=== PATIENT | male | born 1940 | race Caucasian/White ===

== ENCOUNTER → 2016-11-07 | Outpatient (CLI) | payer OTHER ==
[~2016-11-07] MED LIST: ASPI81TA28 PO; ATOR-24 PO; CHOL1000 PO; MULT-506 PO; OMEG10007 PO; OPTIRAY 320 IV PRN; PRLSR20 PO; TYLOTC500 PO; VNTHFA/IN INH
--- NOTE | 2016-11-07 12:57 | DIAGNOSTIC IMAGING REPORT ---
CHEST CTA for PULMONARY ARTERIES CT DOSE: 544.24 mGycm HISTORY: Chest pain. Dyspnea. R/O PE, CHEST PAIN TECHNIQUE: Multiaxial CT images of the chest were performed following the intravenous administration of contrast to evaluate the pulmonary arteries. Maximal intensity projection images were also obtained. COMPARISON STUDY: None. FINDINGS: There is a normal caliber thoracic aorta with no evidence for dissection. There is no evidence for pulmonary embolus. No pleural effusions. No pneumothorax. The liver and spleen are unremarkable. No mediastinal or hilar lymphadenopathy. The central airways are patent. The lungs are clear. Mild interstitial and peribronchial prominence in the mid to lower lung regions bilaterally. IMPRESSION: No evidence for pulmonary embolus. Mild peribronchial and interstitial prominence in the basilar lung regions bilaterally Electronically signed by: David Burleson M.D. 11/07/2016 12:56 PM Dictated Date/Time: 11/07/2016 12:51 PM
== END | disposition home or self-care (01) ==
LOC: C.CTS 12:14
PROVIDERS: ATTEND Physician Assistant
DX: R07.9 Chest pain, unspecified (principal)

== ENCOUNTER → 2016-11-17 | Day surgery (SDC) | payer OTHER ==
[2016-11-17] VITALS (14 sets, daily range): BP systolic 107–156; BP diastolic 55–103; PULSE 53–108; TEMP 36.4–36.9; O2SAT 95–100; Ht 182.9 cm; Wt 106.0 kg
[~2016-11-17] VITALS: Ht 182.9 cm; Wt 106.0 kg
[~2016-11-17] MED LIST changes: +FENTANYL CITRATE 100 MCG 2 ML CARP IV ONE; +MIDAZOLAM HCL 5 MG/ML 2ML VIAL IV ONE; -OPTIRAY 320 IV PRN
--- NOTE | 2016-11-17 08:57 | History & Physical Bridge Note ---
H&P Re-Evaluation Bridge Note: I have examined the patient, reviewed the History & Physical and in the interval since the performance of the History & Physical I have noted the following changes of clinical significance: No changes noted
--- NOTE | 2016-11-17 08:57 | History and Physical ---
History & Physical Date Nov 17, 2016. Chief Complaint The patient is a 75 year old male with complaints of chronic cough and progressive fatigue: History of Present Illness The patient is a 75 year old male with complaints of chronic cough and progressive fatigue: The patient is a 75y/o male with continued SOB and active mucus production. He had a bronchoscopy 05/01/14 with no significant findings even a negative AFB analysis. He is here for repeat bronchoscopy for his chronic bronchiectasis. Recent EKG (11/06/16) in the clinic noted PVC but no signs of acute ischemia along with a negative Troponin I (11/06/16). 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) Allergies Coded Allergies: Amoxicillin (Verified Allergy, Intermediate, RASH, 11/17/16) Ibuprofen (Verified Allergy, Intermediate, HIVES, 11/17/16) Naproxen (Verified Allergy, Intermediate, HIVES, 11/17/16) Penicillins (Verified Allergy, Intermediate, RASH, 11/17/16) Aspirin (Verified Adverse Reaction, Intermediate, ULCER, 11/17/16) Home Medications Scheduled Albuterol Hfa (Ventolin Hfa), 2 PUFFS INH DAILY Aspirin (Aspirin Ec), 81 MG PO DAILY Atorvastatin (Lipitor), 1 TAB PO DAILY Cholecalciferol (Vitamin D3), 1 TAB PO DAILY Fish Oil (Yachats-3), 4 CAPSULES PO DAILY Multivitamin (Multivitamin), 1 TAB PO DAILY Omeprazole (Prilosec), 20 MG PO DAILY Physical Examination Skin: warm/dry, no rash Eyes: normal inspection, EOMI, sclerae normal ENT: normal ENT inspection, pharynx normal Head: normocephalic, atraumatic Neck: supple, no adenopathy, trachea midline Respiratory/Chest: lungs clear, normal breath sounds, no respiratory distress Cardiovascular: regular rate, rhythm, no edema, no murmur Abdomen / GI: normal bowel sounds, non tender Back: normal inspection Extremities: normal inspection, normal range of motion Neurologic/Psych: no motor/sensory deficits, alert, normal reflexes, oriented x 3 Diagnosis Chronic Cough ASA Classification: ASA Class III Plan of Treatment Bronchoscopy with BAL
--- NOTE | 2016-11-17 08:58 | Procedure Note ---
Pre-Mod Sedation Assessment General Date of Moderate Sedation: Nov 17, 2016. Vital Signs: Vital Signs Past 12 Hours Date Time Temp Pulse Resp B/P (MAP) Pulse Ox O2 Delivery O2 Flow Rate FiO2 11/17/16 08:35 36.5 70 18 156/71 (99) 95 Room Air Review Cardiovascular: regular rate, rhythm, no edema, no gallop, no JVD, no murmur, normal peripheral pulses Abdomen: normal bowel sounds, non tender, soft, no organomegaly, no pulsatile mass Lungs: chest non-tender, lungs clear, normal breath sounds, no respiratory distress, no accessory muscle use Pre-Sedation Airway Assessment Smoking Status: Current Some Day Smoker Mallampati Classification: Class III ASA Classification: Class III Procedure Planning Contraindications-for Mod Sed: None Yes Notes The planned sedation has been discussed with the patient and consent obtained. I have identified the patient, determined the appropriateness of sedation and have assessed the patient immediately prior to the procedure. All medicine(s) and interventions are by my order.
--- NOTE | 2016-11-17 10:30 | Procedure Note ---
Post-Moderate Sedation Plan General Date of Moderate Sedation Nov 17, 2016. Vital Signs: Vital Signs Past 12 Hours Date Time Temp Pulse Resp B/P (MAP) Pulse Ox O2 Delivery O2 Flow Rate FiO2 11/17/16 10:00 93 16 107/58 95 Nasal Cannula 3.0 11/17/16 09:55 80 14 112/67 98 Mask 8.0 11/17/16 09:50 108 16 139/77 99 Mask 8.0 11/17/16 09:45 106 18 137/82 100 Mask 8.0 11/17/16 09:40 98 18 133/79 100 Mask 8.0 11/17/16 09:30 93 21 151/103 100 Mask 8.0 11/17/16 09:16 36.5 18 156/71 95 Room Air 11/17/16 08:35 36.5 70 18 156/71 (99) 95 Room Air Review - Discharge Plan Post Moderate Sedation Plan: On clinical assessment, the patient appears to have tolerated the conscious sedation without complications. Patient is recovering as anticipated. Patient will continue to be monitored by nursing and may be discharged when conscious sedation discharge criteria are met.
--- NOTE | 2016-11-17 10:32 | Bronchoscopy Procedure Note ---
Bronchoscopy Procedure Note Procedure: Bronchoscopy, conscious sedation, BAL (Lingula) Consent: Obtained through the patient placed into the chart Pre-procedural diagnosis: chronic Cough Post-procedural diagnosis: chronic cough Start time: 942 End time: 955 Total time: 13 minutes Analgesia: 2% liquid lidocaine: Via nebulizer 4% gel lidocaine: Via right naris 2% liquid lidocaine: Via bronchoscopy Sedation: Versed IV: 3 mg Fentanyl IV: 75 g Procedure: The Olympus video bronchoscope was used for this procedure and passed down through the right naris Right naris/posterior naris/posterior oropharynx: Anatomically within normal limits Glottis: Anatomically within normal limits Vocal cords: Proper abduction and abduction, anatomically within normal limits Subglottis/trachea/Clarita: Anatomically within normal limits Right bronchial tree: Right mainstem bronchus: 70% EDAC, Anatomically within normal limits Right upper lobe: Anatomically within normal limits Bronchus intermedius: Anatomically within normal limits Right middle lobe: Anatomically within normal limits Right lower lobe: Anatomically within normal limits Findings: diffuse airway collapse in the 4-5 airway generations Left bronchial tree: Left mainstem bronchus: Anatomically within normal limits Left upper lobe: Anatomically within normal limits Lingula: Anatomically within normal limits Left lower lobe: Anatomically within normal limits Findings: diffuse airway collapse in the 4-5 airway generations Bronchial alveolar lavage: Lingula EBL: none Complications: None Follow-up: In the [facility]
--- NOTE | 2016-11-17 10:34 | Discharge Instructions ---
Discharge Instructions Date of Service Nov 17, 2016. Admission Reason for Admission: Chronic Cough, Sob Discharge Discharge Diagnosis / Problem: Chronic Cough Discharge Goals Goal(s): Improve function, Diagnostic testing Activity Recommendations Activity Limitations: resume your previous activity . Instructions / Follow-Up Instructions / Follow-Up Follow-Up with Provider Rafal Anaya Current Hospital Diet Patient's current hospital diet: Discharge Diet Recommended Diet: Regular Diet Procedures Procedures Performed: Bronchoscopy with Bronchial lavage of the left upper lobe and conscious sedation Pending Studies Studies pending at discharge: no Medical Emergencies . Who to Call and When: Medical Emergencies: If at any time you feel your situation is an emergency, please call 911 immediately. . Non-Emergent Contact Non-Emergency issues call your: [employer] M Call Non-Emergent contact if: temperature is above 101.5 . . "Provider Documentation" section prepared by Rob Cohn. . VTE Core Measure Inpt VTE Proph given/why not?: Treatment not indicated
[2016-11-19 12:22] LABS: HERPES SIMPLEX CULT SOURCE OTHER-BAL LINGULA; HERPES SIMPLEX VIRUS CULT NOT ISOLATED (NOT ISOLATED)
== END | disposition home or self-care (01) ==
LOC: C.ACU 07:58
PROVIDERS: ATTEND Physician Assistant
DX: R05 Cough (principal); R53.83 Other fatigue; J45.909 Unspecified asthma, uncomplicated; I25.10 Atherosclerotic heart disease of native coronary artery without angina pectoris; G47.30 Sleep apnea, unspecified; Z85.46 Personal history of malignant neoplasm of prostate; Z79.82 Long term (current) use of aspirin; Z79.899 Other long term (current) drug therapy